=== PATIENT | female | born 1985 | race Caucasian/White ===

== ENCOUNTER 2018-11-11 11:24 | Emergency (ER) | payer MEDICAID, OTHER ==
[~2018-11-11] VITALS: Ht 160 cm; Wt 113.4 kg
[2018-11-11 11:47] VITALS: BP 126/88
== END 2018-11-11 13:49 | disposition left against medical advice (07) ==
LOC: ER 11:27
DX: R05 Cough (principal); Z53.21 Procedure and treatment not carried out due to patient leaving prior to being seen by health care provider

== ENCOUNTER 2025-08-08 08:15 | Emergency (ER) | payer BC, MEDICAID ==
[~2025-08-08] VITALS: Ht 160 cm; Wt 123.3 kg
--- NOTE | 2025-08-08 08:50 | ED.PDOC ---
HPI Comments Patient presented to emergency department complaining of chest pain exacerbated by debriding since yesterday getting worse Chief Complaint: Chest Pain Time Seen by MD: 08:42 Primary Care Provider: NONE Reviewed Notes: Nurses Notes, Medications, Allergies Allergies: Coded Allergies: NO KNOWN ALLERGIES (Unverified , 08/08/25) Information Source: Patient Mode of Arrival: Ambulatory Severity: Moderate Timing: Hours Duration: Since onset Radiation: No Radiation Quality: Sharp, Stabbing Onset: At Rest, Other (With deep breathing) Cardiac Risk Factors: HTN PE Risk Factors: None History of: None Modifying Factors: Exertion, Breathing, Movement Associated Signs and Symptoms: Back Pain Past Medical History PAST MEDICAL HISTORY: HTN Past Medical History (Other): Psoriatic arthritis Surgical History: , Tonsillectomy BACKWINDER History: No Pertinent BACKWINDER History Family History Family History: Reviewed,noncontributory to illness, No family hx of Cancer, No family hx of DM, No family hx of Heart maggy, No family hx of HTN, No family hx ofKidney maggy, No family hx of Liver maggy, No family hx of Lung maggy, No family hx of Stroke Social History Smoker: Non-Smoker Alcohol: Denies ETOH Use Drugs: Denies Drug Use Lives In: Home Constitutional: denies: chills, diaphoresis, fatigue, fever, malaise, sweats, weakness, others EENTM: denies: blurred vision, double vision, ear bleeding, ear discharge, ear drainage, ear pain, ear ringing, eye pain, eye redness, hearing loss, mouth pain, mouth swelling, nasal discharge, nose bleeding, nose congestion, nose pain, photophobia, tearing, throat pain, throat swelling, voice changes, others Respiratory: reports: cough; denies: hemoptysis, orthopnea, SOB at rest, shortness of breath, SOB with excertion, stridor, wheezing, others Cardiovascular: reports: chest pain, others; denies: dizzy spells, diaphoresis, Dyspnea on exertion, edema, irregular heart beat, left arm pain, lightheadedness, palpitations, PND, syncope Gastrointestinal: denies: abdomen distended, abdominal pain, blood streaked bowels, constipated, diarrhea, dysphagia, difficulty swallowing, hematemesis, melena, nausea, poor appetite, poor fluid intake, rectal bleeding, rectal pain, vomiting, others Genitourinary: denies: abnormal vagina bleeding, burning, dyspareunia, dysuria, flank pain, frequency, hematuria, incontinence, pain, , vagina discharge, urgency, others Neurological: denies: dizziness, fainting, headache, left sided numbness, left sided weakness, numbness, paresthesia, pre-existing deficit, right sided numbn ess, right sided weakness, seizure, speech problems, tingling, tremors, weakness, others Musculoskeletal: reports: back pain; denies: gout, joint pain, joint swelling, muscle pain, muscle stiffness, neck pain, others Integumetry: denies: bruises, change in color, change in hair/nails, dryness, laceration, lesions, lumps, rash, wounds, others Allergic/Immunocompromised: denies: Difficulty Healing, Frequent Infections, Hives, Itching, others Hematologic/Lymphatic: denies: anemia, blood clots, easy bleeding, easy bruising, swollen glands, others Endocrine: denies: excessive hunger, excessive sweating, excessive thirst, excessive urination, flushing, intolerance to cold, intolerance to heat, unexplained weight gain, unexplained weight loss, others Psychiatric: denies: anxiety, bipolar disorder, depression, hopeless, panic disorder, schizophrenia, sleepless, suicidal, others All Other Systems: Reviewed and Negative Physical Exam General Appearance: Mild Distress, Obese HEENT: Normal ENT Inspection, Pharynx Normal, TMs Normal Neck: Full Range of Motion, Non-Tender, Normal, Normal Inspection Respiratory: Lungs Clear, No Accessory Muscle Use, No Respiratory Distress, Normal Breath Sounds, Other (Sternal and xiphoid process tender) Cardiovascular: No Edema, No JVD, No Murmur, No Gallop, Normal Peripheral Pulses, Regular Rate/Rhythm Breast Exam: Deferred Gastrointestinal: No Organomegaly, Non Tender, No Pulsatile Mass, Normal Bowel Sounds, Soft Genitalia: Deferred Pelvic: Deferred Rectal: Deferred Extremities: No calf tenderness, Normal capillary refill, Normal inspection, Normal range of motion, Non-tender, No pedal edema Neurologic: Alert, territory account manager II-XII nml as Tested, No Motor Deficits, Normal Affect, Normal Mood, No Sensory Deficits Cerebellar Function: Normal Reflexes: Normal Skin: Dry, Normal Color, Warm Peripheral Pulses: 1+ carotid (R), 1+ carotid (L) Lymphatic: No Adenopathy EKG EKG : Pulse Rate (adult): 71 [place]: Normal Cardiac Rhythm: NSR Was a procedure done? Was a procedure done?: No CP Differential Dx Differential Diagnosis: Angina, Anxiety / Panic Attack, Sinus Tachycardia Differential Diagnosis: HTN Essential Differential Diagnosis: Angina, Chest Wall Pain, Costochondritis, Esophageal reflux/spasm, Pneumonia X-Ray, Labs, Meds, VS Vital Signs Date Time Temp Pulse Resp B/P (MAP) Pulse Ox O2 Delivery O2 Flow Rate FiO2 08/08/25 11:45 98.0 60 18 135/80 (98) 99 98.0 08/08/25 09:08 97.9 74 20 133/86 (102) 97 97.9 08/08/25 09:08 74 08/08/25 08:50 71 08/08/25 08:23 71 08/08/25 08:16 97.6 80 18 148/92 98 97.6 Lab Test 08/08/25 09:44 08/08/25 08:29 Range/Units Troponin I High Sensitivity < 3 L < 3 L </=34 ng/L White Blood Count 9.1 4.4-10.8 10^3/uL Red Blood Count 4.33 4.0-5.20 10^6/uL Hemoglobin 10.4 L 12.2-16.2 g/dL Hematocrit 33.1 L 36.0-46.0 % Mean Corpuscular Volume 76.4 L 80.0-100.0 fL Mean Corpuscular Hemoglobin 24.0 L 28.0-32.0 pg Mean Corpuscular Hemoglobin Concent 31.5 L 32.0-36.0 g/dL Red Cell Distribution Width 18.3 H 11.8-14.3 % Platelet Count 358 140-450 10^3/uL Mean Platelet Volume 9.0 6.9-10.8 fL Neutrophils (%) (Auto) 70.2 37.0-80.0 % Lymphocytes (%) (Auto) 21.4 10.0-50.0 % Monocytes (%) (Auto) 6.1 0.0-12.0 % Eosinophils (%) (Auto) 1.6 0.0-7.0 % Basophils (%) (Auto) 0.7 0.0-2.0 % Neutrophils # (Auto) 6.4 1.6-8.6 10 ^3/uL Lymphocytes # (Auto) 1.9 0.4-5.4 10 ^3/uL Monocytes # (Auto) 0.6 0-1.3 10 ^3/uL Eosinophils # (Auto) 0.1 0-0.8 10 ^3/uL Basophils # (Auto) 0.1 0-0.2 10 ^3/uL Nucleated Red Blood Cells 0.2 % Sodium Level 140 136-145 mmol/L Potassium Level 4.2 3.5-5.1 mmol/L Chloride Level 102 98-107 mmol/L Carbon Dioxide Level 28 20-31 mmol/L Anion Gap 10 5-15 Blood Urea Nitrogen 9 9-23 mg/dL Creatinine 0.65 0.550-1.02 mg/dL Glomerular Filtration Rate Calc 113 >90 mL/min BUN/Creatinine Ratio 13.8 10.0-20.0 Serum Glucose 91 74-106 mg/dL Calcium Level 9.2 8.7-10.4 mg/dL Magnesium Level 2.1 1.6-2.6 mg/dL Total Bilirubin 0.5 0.2-1.0 mg/dL Aspartate Amino Transferase (AST) 16 13-40 U/L Alanine Aminotransferase (ALT) 20 7-40 U/L Alkaline Phosphatase 73 46-116 U/L Total Protein 7.7 5.7-8.2 g/dL Albumin 4.4 3.2-4.8 g/dL Current Medications Medications (Trade) Dose Ordered Sig/Basia Route Start Time Stop Time Status Last Admin Aspirin 162 mg ONCE ONCE PO 08/08/25 08:45 08/08/25 08:46 DC 08/08/25 09:16 Sodium Chloride 1,000 ml @ 150 mls/hr Q6H40M ONCE IV 08/08/25 08:45 08/08/25 15:24 08/08/25 09:17 Ketorolac Tromethamine (Toradol Injection) 30 mg ONCE ONCE IV 08/08/25 08:45 08/08/25 08:46 DC 08/08/25 09:16 X-Ray, Labs, Meds, VS Comment Course in the emergency department eventful patient came back complaining of chest pain mostly sternal pain Blood pressure 148/92 Chest x-ray normal EKG normal sinus rhythm at 71 Troponin three and three normal CBC 9100 with 70% neutrophils H&H 10 and 33 with microcytic cytosis Magnesium 2.1 CMP normal Patient will be discharged home to follow up with her PCP Time of 1ST Reevaluation: 08:42 Reevaluation 1ST: Unchanged Patient Education/Counseling: Diagnosis, Treatment, Prognosis Family Education/Counseling: Diagnosis, Treatment, Prognosis SEPSIS Sepsis Screen Date sepsis recognized/suspect: Aug 08, 2025 Time Sepsis recognized/suspect: 816 Recent Procedure: No Respiratory Rate >20: No Heart Rate >90: No Temp<36 C (96.8 F) or >38.3 C: No SBP <90 or MAP <65 mmHG: No New Acute Mental Status Change: No Is the patient on CPAP, BIPAP,: No Physician Orders Electrocardigram (08/08/25 08:19) Electrocardigram (08/08/25 09:19) Electrocardigram (08/08/25 11:19) Heplock Iv (08/08/25 08:38) Automatic Brine Mixer Operator (08/08/25 08:38) Blood Pressure (08/08/25 08:38) Pulse Oximetry (08/08/25 08:38) Chest Two Views Routine (08/08/25 08:38) Sodium Chloride 0.9% (08/08/25 08:45) Vital Signs Date Time Temp Pulse Resp B/P (MAP) Pulse Ox O2 Delivery O2 Flow Rate FiO2 08/08/25 11:45 98.0 60 18 135/80 (98) 99 98.0 08/08/25 09:08 97.9 74 20 133/86 (102) 97 97.9 08/08/25 09:08 74 08/08/25 08:50 71 08/08/25 08:23 71 08/08/25 08:16 97.6 80 18 148/92 98 97.6 Laboratory Tests Test 08/08/25 08:29 White Blood Count 9.1 10^3/uL (4.4-10.8) Medications Medications Dose Ordered Sig/Basia Route Start Time Stop Time Status Last Admin Dose Admin Aspirin 162 mg ONCE ONCE PO 08/08/25 08:45 08/08/25 08:46 DC 08/08/25 09:16 Ketorolac Tromethamine 30 mg ONCE ONCE IV 08/08/25 08:45 08/08/25 08:46 DC 08/08/25 09:16 Sodium Chloride 1,000 ml @ 150 mls/hr Q6H40M ONCE IV 08/08/25 08:45 08/08/25 15:24 08/08/25 09:17 Departure 1 Departure Time of Disposition: 11:50 Impression: Primary Impression: Musculoskeletal chest pain Additional Impression: Tietze syndrome Disposition: HOME / SELF CARE / HOMELESS Condition: Fair Additional Instructions: Local heat and follow up with your PCP e-Prescriptions Omeprazole (Gnp Omeprazole) 20 Mg Tab 1 TAB PO BID for 10 Days, #20 TAB 1 Refill Prov: SANTOSH MALDONADO MD 08/08/25 Naproxen (Naproxen) 375 Mg Tab 375 MG PO TID for 10 Days, #30 TAB Prov: SANTOSH MALDONADO MD 08/08/25 Discharged With: Self Critical Care Note Critical Care Time?: No Stability Stability form required: No Heart Score Heart Score: Heart Score Response (Comments) Value History Moderate Suspicious 1 EKG Normal 0 Age <45 0 Risk Factors 1 or 2 risk factors 1 Troponin Normal limit 0 Total 2 SANTOSH MALDONADO MD Aug 08, 2025 08:50
[2025-08-08] MEDS: KETOROLAC TROMETH 30 MG/ML 1ML VIAL IV ONE (09:16)
--- NOTE | 2025-08-08 09:16 | DVH ---
CHEST RADIOGRAPH Indication: cp Technique: Frontal and lateral view of the chest was obtained Comparison: None FINDINGS: Lines and Tubes: None Lungs: Clear Pleura: No effusion. No pneumothorax. Cardiomediastinal contours: Unremarkable Bones: Unremarkable IMPRESSION: No evidence of acute disease.
[2025-08-08] MEDS: SODIUM CHLORIDE 0.9% 1,000 ML IV ONE (09:17)
[2025-08-08 09:33] LABS: Hematocrit 33.1 % (36.0-46.0); Hemoglobin 10.4 g/dL (12.2-16.2); Mean Corpuscular Hemoglobin 24.0 pg (28.0-32.0); Mean Corpuscular Volume 76.4 fL (80.0-100.0); Nucleated Red Blood Cells % 0.2 %
[2025-08-08 09:43] LABS: Alanine Aminotransferase 20 U/L (7-40); Alkaline Phosphatase 73 U/L (46-116); Anion Gap 10 (5-15); BUN/Creatinine Ratio 13.8 (10.0-20.0); Calcium 9.2 mg/dL (8.7-10.4); Carbon Dioxide 28 mmol/L (20-31); Chloride 102 mmol/L (98-107); Glucose 91 mg/dL (74-106); Magnesium 2.1 mg/dL (1.6-2.6); Potassium 4.2 mmol/L (3.5-5.1); Sodium 140 mmol/L (136-145); Total Protein 7.7 g/dL (5.7-8.2)
[2025-08-08 09:44] LABS: Albumin 4.4 g/dL (3.2-4.8); Bilirubin, Total 0.5 mg/dL (0.2-1.0)
[2025-08-08 09:54] LABS: Blood Urea Nitrogen 9 mg/dL (9-23)
[2025-08-08 11:45] VITALS: BP 135/80; PULSE 60; RESP 18; TEMP 98; O2SAT 99
[2025-08-08] MEDS ORDERED: NAPR-957 PO (11:54)
[2025-08-08] MEDS ORDERED: OMEP20TA PO (11:54)
--- NOTE | 2025-08-08 19:07 | ECG ---
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
== END 2025-08-08 12:15 | disposition home or self-care (01) ==
LOC: ER 08:15
DX: R07.89 Other chest pain (principal); M94.0 Chondrocostal junction syndrome [Tietze]; I10 Essential (primary) hypertension; Z90.89 Acquired absence of other organs
CPT/HCPCS: 36415; 71046; 80053; 83735; 84484; 85025; 93005; 96361; 96374; 99285; J1885; J7030